=== PATIENT | female | born 1995 | race Caucasian/White ===

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

== ENCOUNTER 2017-11-09 20:37 | Emergency (ER) | payer BC, OTHER ==
[2017-11-09 20:56] VITALS: BP 123/74
--- NOTE | 2017-11-09 21:02 | UC ---
Throat Pain/Nasal Hector HPI - HPI Summary HPI Summary: 22 y/o female presents to the urgent care accompany by mother c/o sore throat since this morning. Pain w/ swallowing is 8/10 radiating to his Rt ear. Rt side of neck has a painful swollen gland and mild clear nasal discharge. Pt took Tylenol PO to alleviate symptoms about 20min ago. Pt denies fever, cough, SOB, chest pain, abdominal pain, N/V/D. Pt is UTD w/ vaccines for her age. - History of Current Complaint Chief Complaint: UCGeneralIllness Stated Complaint: SORE THROAT,EARS Time Seen by Provider: 11/09/17 20:56 Hx Obtained From: Patient, Family/[employer]s [employer] Director - mother Hx Last Menstrual Period: 11/07/17 Onset/Duration: Gradual Onset, Lasting Hours - this morning Severity: Moderate Pain Intensity: 8 Pain Scale Used: 0-10 Numeric Cough: None Associated Signs & Symptoms: Positive: Dysphagia, Nasal Discharge - clear - Epiglottits Risk Factors Epiglottis Risk Factors: Negative - Allergies/Home Medications Allergies/Adverse Reactions: Allergies Allergy/AdvReac Type Severity Reaction Status Date / Time MS Azithromycin Allergy Intermediate Swelling Unverified 10/21/16 08:00 [From Zithromax] MS Shrimp Flavor Allergy Intermediate Vomiting Unverified 10/21/16 08:00 [Shrimp Flavor] MS Latex [Latex] Allergy Itching Verified 10/21/16 08:00 Home Medications: Home Medications Acetaminophen [Tylenol Extra Strength] 1,000 mg PO ONCE 11/09/17 [History Confirmed 11/09/17] Control Pill 1 tab BEDTIME 11/09/17 [History Confirmed 11/09/17] PMH/Surg Hx/FS Hx/Imm Hx Previously Healthy: Yes - Mother denies PMHX - Surgical History Surgical History: Yes Surgery Procedure, Year, and Place: ear tubes, 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 - Family History Known Family History: Positive: Cardiac Disease, Hypertension, Diabetes - Social History Occupation: Student Lives: With Family Alcohol Use: Occasionally Substance Use Type: None Smoking Status (MU): Never Smoked Tobacco - Immunization History Vaccination Up to Date: Yes Review of Systems Constitutional: Negative Skin: Negative Eyes: Negative ENT: Sore Throat, Ear Ache - RT ear pain, Nasal Discharge - clear Respiratory: Negative Cardiovascular: Negative Gastrointestinal: Negative Genitourinary: Negative Motor: Negative Neurovascular: Negative Musculoskeletal: Negative Neurological: Negative Psychological: Negative Is Patient Immunocompromised?: No All Other Systems Reviewed And Are Negative: Yes Physical Exam - Summary Physical Exam Summary: VITAL SIGNS: Reviewed. GENERAL: Patient is a well developed and nourished who is sitting comfortable in the examining table. Patient is not in any acute respiratory distress. HEAD AND FACE: No signs of trauma. No ecchymosis, hematomas or skull depressions. No sinus tenderness. EYES: PERRLA, EOMI x 2, No injected conjunctiva, no nystagmus. No photophobia. EARS: Hearing grossly intact. Ear canals and tympanic membranes are within normal limits. MOUTH: Positive pharynx with erythema, exudates, palatal petechiae. B/L tonsillar enlargement with exudate. RT>LF. Uvula in midline. NECK: Supple, trachea is midline, Positive anterior cervical lymphadenopathy, no JVD, no carotid bruit, no c-spine tenderness, neck with full ROM. No meningeal signs, no Kernig's or brudzinskis signs. CHEST: Symmetric, no tenderness at palpation LUNGS: Clear to auscultation bilaterally. No wheezing or crackles. CVS: Regular rate and rhythm, S1 and S2 present, no murmurs or gallops appreciated. ABDOMEN: Soft, non-tender. No signs of distention. No rebound no guarding, and no masses palpated. Bowel sounds are normal. EXTREMITIES: FROM in all major joints, no edema, no cyanosis or clubbing. NEURO: Alert and oriented x 3. No acute neurological deficits. Speech is normal and follows commands. SKIN: Dry and warm Triage Information Reviewed: Yes Vital Signs: Initial Vital Signs Temp 98.6 F 11/09/17 20:51 Pulse 114 11/09/17 20:51 Resp 17 11/09/17 20:51 BP 123/74 11/09/17 20:51 Pulse Ox 99 11/09/17 20:51 Throat Pain/Nasal Course/Dx - Course Course Of Treatment: 22 y/o female presents to the urgent care accompany by mother c/o sore throat since this morning. Pain w/ swallowing is 8/10 radiating to his Rt ear. Rt side of neck has a painful swollen gland and mild clear nasal discharge. Pt took Tylenol PO to alleviate symptoms about 20min ago. Pt denies fever, cough, SOB, chest pain, abdominal pain, N/V/D. Pt is UTD w/ vaccines for her age. Hx obtained. Pt w/ pharyngitis on examination. Rapid strep ordered, result: negative. Viral pharyngitis. Monospot and throat culture ordered and sent to lab. Pt will be notified of any result. Pt Rx ibuprofen PO to alleviates symptoms of pain and swelling. Advised on hand washing to avoid spreading. Pt advised to rest, eat well and avoid strenuous exercise. If symptoms do not improve or worsen advised to return to the urgent care or f/u with her PCP for further evaluation and treatment. Mother and Pt understood and agreed w/ plan of care. - Differential Dx/Diagnosis Differential Diagnosis/HQI/PQRI: Mononucleosis, Pharyngitis, Sinusitis, Tonsillitis, URI Provider Diagnoses: 1- Viral pharyngitis Discharge - Sign-Out/Discharge Documenting (check all that apply): Patient Departure - D/C home - Discharge Plan Condition: Stable Disposition: HOME Prescriptions: Ibuprofen TAB* [Motrin TAB* 600 MG] 600 mg PO Q6H PRN #30 tab PRN Reason: Sore Throat Patient Education Materials: Pharyngitis (ED) Referrals: Glenis Castellano MD [Primary Care Provider] - 3 Days Additional Instructions: 1-Please take ibuprofen PO q6-8hrs prn as instructed after meals to alleviate pain and swelling. Increase fluid intake, eat well, rest and avoid strenuous exercise 2-If symptoms do not improve or worsen please return to the urgent care or f/u with your PCP for further evaluation and treatment. 3- Monospot test will be sent to lab to r/o mononucleosis - Billing Disposition and Condition Condition: STABLE Disposition: Home Attestation Statement User Type: Provider - I was available for consult. This patient was seen by the KACEY. The patient was not presented to, seen by, or examined by me. -Miguel
--- NOTE | 2017-11-11 07:06 | UC ---
- Progress Note Progress Note: neg monospot EBV pending no change sam 11/11/17 Discharge - Sign-Out/Discharge Documenting (check all that apply): Post-Discharge Follow Up - Discharge Plan Condition: Stable Disposition: HOME Prescriptions: Ibuprofen TAB* [Motrin TAB* 600 MG] 600 mg PO Q6H PRN #30 tab PRN Reason: Sore Throat Patient Education Materials: Pharyngitis (ED) Referrals: Glenis Castellano MD [Primary Care Provider] - 3 Days Additional Instructions: 1-Please take ibuprofen PO q6-8hrs prn as instructed after meals to alleviate pain and swelling. Increase fluid intake, eat well, rest and avoid strenuous exercise 2-If symptoms do not improve or worsen please return to the urgent care or f/u with your PCP for further evaluation and treatment. 3- Monospot test will be sent to lab to r/o mononucleosis - Billing Disposition and Condition Condition: STABLE Disposition: Home
== END 2017-11-09 21:35 | disposition home or self-care (01) ==
LOC: UCCORT 20:37
DX: Z88.1 Allergy status to other antibiotic agents (principal); J02.8 Acute pharyngitis due to other specified organisms
CPT/HCPCS: 36415; 86308; 86664; 86665; 87070; 87651; 99212; G0463

== ENCOUNTER 2022-06-18 19:51 | Inpatient (IN) ==
[2022-06-18 20:42] LABS: ABS Lymphocytes 1.5 10^3/ul (1.0-4.8); ABS Monocytes 0.2 10^3/ul (0-0.8); ABS Neutrophils 5.2 10^3/ul (1.5-7.7); Eosinophil % 0.2 %; Hematocrit 41 % (35-47); Hemoglobin 13.3 g/dL (12.0-16.0); Lymphocyte % 21.2 %; Mean Corpuscular HGB Conc 33 g/dL (31-36); Mean Corpuscular Hemoglobin 28 pg (27-31); Mean Corpuscular Volume 85 fL (80-97); Mean Platelet Volume 8.9 fL (7.4-10.4); Platelet Count 230 10^3/uL (150-450); Red Blood Count 4.77 10^6 /uL (3.70-4.87); Red Cell Distribution Width 14 % (10-15); White Blood Count 6.9 10^3/uL (3.5-10.8)
[2022-06-18 20:44] LABS: Urine Appearance Cloudy; Urine Bilirubin Negative (Negative); Urine Blood Negative (Negative); Urine Color Yellow; Urine Glucose Negative (Negative); Urine Ketones 2+ (Negative); Urine Nitrite Negative (Negative); Urine Protein 1+(30 mg/dL) (Negative); Urine Specific Gravity 1.024 (1.002-1.030); Urine Urobilinogen Negative (Negative)
[2022-06-18 20:53] LABS: Urine Bacteria 1+ (Absent); Urine Red Blood Cell 2+(6-10/hpf) (Absent); Urine Squamous Epithelial Cell Present (Absent); Urine White Blood Cell 2+(11-20/hpf) (Absent)
[2022-06-18 21:05] LABS: ALT 10 U/L (7-52); AST 11 U/L (13-39); Acetaminophen < 15 mcg/mL; Albumin 5.1 g/dL (3.2-5.2); Alcohol, S < 13 mg/dL (<13); Alkaline Phosphatase 47 U/L (35-149); Anion Gap 8 mmol/L (2-11); Blood Urea Nitrogen 11 mg/dL (6-24); CO2 Carbon Dioxide 25 mmol/L (22-32); Calcium 9.9 mg/dL (8.6-10.3); Chloride 104 mmol/L (101-111); Creatinine, Serum 0.69 mg/dL (0.51-0.95); Globulin 2.6 g/dL (2-4); Glucose 102 mg/dL (70-100); Potassium 3.8 mmol/L (3.5-5.0); Salicylate < 2.50 mg/dL (<30); Sodium 137 mmol/L (135-145); Total Protein 7.7 g/dL (6.4-8.9); eGFR CKD-EPI 123.4 (>60)
[2022-06-18 21:10] LABS: Urine Benzodiazepine Screen None Detected (None Detect); Urine Cannabinoids Screen Presumptive Positive (None Detect); Urine Opiates Screen None Detected (None Detect)
[2022-06-18 21:19] LABS: TSH Ultra Thyroid Stim Horm 1.56 mcIU/mL (0.34-5.60)
[2022-06-19 08:14] LABS: HCG Pregnancy < 0.60 mIU/mL
[2022-06-19] MEDS ORDERED: Al Hydrox/Mg Hydrox/Simet LIQ 30 ML UDC PO PRN (08:41)
[2022-06-19] MEDS: CMCS: Meloxicam 7.5 mg TAB (NF) PO SCH (20:49)
[2022-06-20 08:02] LABS: HDL Cholesterol 48.8 mg/dL
[2022-06-20] MEDS: Nitrofurantoin (monohydrate/macrocrystals) 100 mg CAP PO SCH (08:23)
[2022-06-20] MEDS: NORGESTIMATE ETHINYL ESTRADIOL PO SCH (20:10)
[2022-06-20] MEDS: CMCS: Meloxicam 7.5 mg TAB (NF) PO SCH (20:13)
[2022-06-21] MEDS: Nitrofurantoin (monohydrate/macrocrystals) 100 mg CAP PO SCH (08:42)
[2022-06-21] MEDS: CMCS: Meloxicam 7.5 mg TAB (NF) PO SCH (20:27)
[2022-06-21] MEDS: NORGESTIMATE ETHINYL ESTRADIOL PO SCH (20:28)
[2022-06-22] MEDS: Nitrofurantoin (monohydrate/macrocrystals) 100 mg CAP PO SCH (08:23)
[2022-06-22] MEDS: CMCS: Meloxicam 7.5 mg TAB (NF) PO SCH (20:53)
[2022-06-22] MEDS: NORGESTIMATE ETHINYL ESTRADIOL PO SCH (20:55)
[2022-06-23 07:40] VITALS: BP 126/79
[2022-06-23] MEDS: Nitrofurantoin (monohydrate/macrocrystals) 100 mg CAP PO SCH (07:46)
== END 2022-06-23 13:00 | disposition home or self-care (01) | DRG 751 ==
LOC: ED 19:51 → EDHOLD 06-19 08:41 → BSU 06-19 10:17
PROVIDERS: ADMIT Psychiatry & Neurology Psychiatry; ATTEND Psychiatry & Neurology Psychiatry